=== PATIENT | male | born 1945 | race Caucasian/White ===

== ENCOUNTER 2023-01-25 08:46 | Day surgery (SDC) | payer OTHER ==
[~2023-01-25] VITALS: Ht 160 cm; Wt 58.1 kg
[~2023-01-25 08:46] MED LIST: CEFAZOLIN SOD 2 GM in D5W 50 ML IV ONE
[2023-01-25] MEDS ORDERED: ROCURONIUM BROMIDE 10 MG/ML (ZEMURON) ONE (11:23)
[2023-01-25] MEDS ORDERED: DEXAMETHASONE SOD PHOSPHATE 4 MG/ML VIAL ONE (11:23)
[2023-01-25] MEDS ORDERED: BUPIVACAINE /PF 0.5% 30 ML VIAL ONE (11:23)
[2023-01-25] MEDS ORDERED: SUGAMMADEX SODIUM 200 MG/2 ML VIAL IV ONE (11:23)
[2023-01-25] MEDS ORDERED: MORPHINE SULFATE 10MG/10ML PF AMP ONE (11:23)
[2023-01-25] MEDS ORDERED: ONDANSETRON HCL 4 MG/2 ML VIAL ONE (11:23)
[2023-01-25] MEDS ORDERED: NS IRRIG SOLN 1000 ML IR ONE (11:23)
[2023-01-25] MEDS ORDERED: PROPOFOL 200MG/ 20ML VIAL (DIPRIVAN) IV ONE (11:23)
[2023-01-25] MEDS ORDERED: CEFTAZIDIME 1 GM VIAL ONE (11:23)
[2023-01-25] MEDS ORDERED: fentaNYL CITRATE/PF 100 MCG/2 ML AMP ONE (11:23)
[2023-01-25] MEDS ORDERED: SUCCINYLCHOLINE CHLORIDE 20 MG/ML(QUELICIN) ONE (11:23)
[2023-01-25] MEDS ORDERED: KETOROLAC TROMETHAMINE 30 MG VIAL ONE (11:23)
[2023-01-25] MEDS ORDERED: NS 100 ML BAG ONE (11:23)
[2023-01-25] MEDS ORDERED: ONDANSETRON HCL 4 MG/2 ML VIAL IVP PRN (11:45)
[2023-01-25] MEDS ORDERED: MORPHINE 4 MG INJ. 4 MG/ML VIAL IVP PRN ×3 (11:45)
[2023-01-25] MEDS ORDERED: HYDROcodone/ACETAMIN 5-325 MG TAB (NORCO/ VICODIN) PO PRN ×2 (13:00)
[2023-01-25] MEDS ORDERED: D5/0.45 NS 1,000 ML IV SCH (13:00)
[2023-01-25 14:57] VITALS: BP_SYST 123
== END 2023-01-25 15:40 | disposition home or self-care (01) ==
LOC: SDS 08:46 → SMU 08:47 → SDS 15:40
PROVIDERS: ATTEND Colon & Rectal Surgery
DX: K40.20 Bilateral inguinal hernia, without obstruction or gangrene, not specified as recurrent (principal); I10 Essential (primary) hypertension; E78.5 Hyperlipidemia, unspecified; J44.9 Chronic obstructive pulmonary disease, unspecified; G63 Polyneuropathy in diseases classified elsewhere; M81.0 Age-related osteoporosis without current pathological fracture; K21.9 Gastro-esophageal reflux disease without esophagitis; Z79.899 Other long term (current) drug therapy
CPT/HCPCS: 87081; 49505; C1781; J3490 ×2; J0690; J0713; J1100; J1885; J2405; J2704; J0330; J3010; J2274; J7060